=== PATIENT | male | born 2000 | race African-American/Black ===

== ENCOUNTER 2023-07-29 19:37 | Emergency (ER) | payer SELFPAY ==
[2023-07-29 20:10] LABS: BASOPHILS ABSOLUTE AUTO 0.05 K/uL (0.00-0.20); BASOPHILS PERCENT AUTO 0.6 % (0.0-2.0); EOSINOPHILS ABSOLUTE AUTO 0.45 K/uL (0.00-0.50); EOSINOPHILS PERCENT AUTO 5.1 % (0.0-5.0); HEMATOCRIT 43.2 % (39.0-49.0); HEMOGLOBIN 14.2 g/dL (13.1-16.8); LYMPHOCYTES ABSOLUTE AUTO 2.01 K/uL (0.50-3.50); LYMPHOCYTES PERCENT AUTO 22.8 % (10.0-50.0); MEAN CORPUSCULAR HEMOGLOBIN 25.4 pg (28.2-33.3); MEAN CORPUSCULAR HGB CONC 32.9 g/dL (31.7-36.0); MEAN CORPUSCULAR VOLUME 77.3 fL (84.0-98.0); MONOCYTES ABSOLUTE AUTO 1.16 K/uL (0.00-1.00); MONOCYTES PERCENT AUTO 13.1 % (2.0-14.0); NEUTROPHILS ABSOLUTE AUTO 5.16 K/uL (1.40-7.00); NEUTROPHILS PERCENT AUTO 58.4 % (45.0-80.0); RED BLOOD CELL COUNT 5.59 M/uL (4.33-5.41); RED CELL DISTRIBUTION WIDTH 14.3 % (11.2-14.1); WHITE BLOOD CELL COUNT,WBC 8.8 K/uL (4.0-10.2)
[2023-07-29 20:24] LABS: INR 1.1 (0.9-1.1); PROTHROMBIN TIME 10.7 SEC (9.0-11.1)
[2023-07-29 20:31] LABS: PLATELET COUNT,PLT 59 K/uL (150-350)
[2023-07-29 20:32] LABS: ALANINE AMINOTRANSFERASE,ALT 22 U/L (12-78); ALBUMIN 4.1 g/dL (3.4-5.0); ALKALINE PHOSPHATASE 90 IU/L (46-116); ANION GAP 8.1 meq/L (7-15); ASPARTATE AMNIOTRANSFERASE,AST 20 U/L (15-37); BILIRUBIN TOTAL 1.5 mg/dL (0.2-1.0); BLOOD UREA NITROGEN,BUN 9 mg/dL (7-18); CALCIUM 9.1 mg/dL (8.5-10.1); CARBON DIOXIDE,CO2 27.9 mmol/L (21.0-32.0); CHLORIDE,CL 104 mmol/L (98-107); CREATININE 0.95 mg/dL (0.51-1.17); GLUCOSE RANDOM 92 mg/dL (70-99); POTASSIUM,K 3.7 mmol/L (3.5-5.1); PROTEIN TOTAL,TP 7.9 g/dL (6.4-8.2); SODIUM,NA 140 mmol/L (136-145)
[2023-07-29 20:33] LABS: ESTIMATED GFR 116 mL/min (>=60)
[2023-07-29 20:34] LABS: CORONAVIRUS COVID-19 NAA NEGATIVE (NEGATIVE); INFLUENZA A NAA NEGATIVE (NEGATIVE); INFLUENZA B NAA NEGATIVE (NEGATIVE); RESPIRATORY SYNCYTIAL VIR NAA NEGATIVE (NEGATIVE)
[2023-07-29 21:18] VITALS: BP 154/89; PULSE 95
== END 2023-07-29 20:45 | disposition home or self-care (01) ==
LOC: LL.ED 19:37
DX: J06.9 Acute upper respiratory infection, unspecified (principal); Z20.822 Contact with and (suspected) exposure to COVID-19
CPT/HCPCS: 0241U; 36415; 71046; 80053; 84484; 85025; 85610; 93005; 99283; 99285

== ENCOUNTER 2023-10-14 12:46 | Emergency (ER) | payer MEDICAID, OTHER ==
[2023-10-14] MEDS: Ondansetron 4 MG/2 ML SDV IVPUSH ONE (13:00)
[2023-10-14] MEDS ORDERED: Sodium Chloride 0.9% 10 ML Syringe FLUSH PRN (13:02)
[2023-10-14] MEDS: Sodium Chloride 0.9% 1,000 ML IV ONE (13:05)
[2023-10-14] MEDS: Ondansetron 4 MG/2 ML SDV ONE (13:18)
[2023-10-14 13:28] LABS: ALBUMIN 4.4 g/dL (3.4-5.0); ANION GAP 13.7 meq/L (7-15); BILIRUBIN TOTAL 1.7 mg/dL (0.2-1.0); CALCIUM 8.9 mg/dL (8.5-10.1); CARBON DIOXIDE,CO2 26.3 mmol/L (21.0-32.0); CREATININE 1.14 mg/dL (0.51-1.17); EST CRCL DRUG DOSING (CG) 94.22 mL/min; MAGNESIUM 1.9 mg/dL (1.8-2.4); POTASSIUM,K 3.7 mmol/L (3.5-5.1); PROTEIN TOTAL,TP 8.1 g/dL (6.4-8.2)
[2023-10-14 13:44] LABS: BASOPHILS ABSOLUTE AUTO 0.07 K/uL (0.00-0.20); BASOPHILS PERCENT AUTO 1.5 % (0.0-2.0); EOSINOPHILS ABSOLUTE AUTO 0.34 K/uL (0.00-0.50); EOSINOPHILS PERCENT AUTO 7.1 % (0.0-5.0); HEMATOCRIT 45.3 % (39.0-49.0); HEMOGLOBIN 14.9 g/dL (13.1-16.8); LYMPHOCYTES ABSOLUTE AUTO 2.29 K/uL (0.50-3.50); LYMPHOCYTES PERCENT AUTO 47.9 % (10.0-50.0); MEAN CORPUSCULAR HEMOGLOBIN 25.6 pg (28.2-33.3); MEAN CORPUSCULAR HGB CONC 32.9 g/dL (31.7-36.0); MEAN CORPUSCULAR VOLUME 77.7 fL (84.0-98.0); MONOCYTES ABSOLUTE AUTO 0.61 K/uL (0.00-1.00); MONOCYTES PERCENT AUTO 12.8 % (2.0-14.0); NEUTROPHILS ABSOLUTE AUTO 1.47 K/uL (1.40-7.00); NEUTROPHILS PERCENT AUTO 30.7 % (45.0-80.0); RED BLOOD CELL COUNT 5.83 M/uL (4.33-5.41); WHITE BLOOD CELL COUNT,WBC 4.8 K/uL (4.0-10.2)
[2023-10-14 13:50] LABS: PLATELET COUNT,PLT 55 K/uL (150-350)
[2023-10-14 14:26] LABS: CORONAVIRUS COVID-19 NAA NEGATIVE (NEGATIVE); INFLUENZA A NAA NEGATIVE (NEGATIVE); INFLUENZA B NAA NEGATIVE (NEGATIVE); RESPIRATORY SYNCYTIAL VIR NAA NEGATIVE (NEGATIVE)
[2023-10-14] MEDS: Take Home: Ondansetron 4 MG Tab.DIS, 5 Tab Pack PO ONE (15:28)
== END 2023-10-14 15:30 | disposition home or self-care (01) ==
LOC: MERGE 12:46 → LL.ED 12:46
DX: K52.9 Noninfective gastroenteritis and colitis, unspecified (principal); Z20.822 Contact with and (suspected) exposure to COVID-19
CPT/HCPCS: 0241U; 36415; 74019; 80053; 83605; 83735; 85025; 96361; 96374; 99284-25; J2405; J7030; Q0162